=== PATIENT | female | born 1990 | race Caucasian/White ===

== ENCOUNTER 2016-09-12 11:24 | Emergency (ER) | payer OTHER ==
[2016-09-12 13:33] VITALS: BP 125/80
--- NOTE | 2016-09-12 14:17 | UC ---
FLU HPI - HPI Summary HPI Summary: NONPRODUCTIVE COUGH FEVER, BODY ACHES. - History of Current Complaint Chief Complaint: UCRespiratory Stated Complaint: FEVER,COUGH Time Seen by Provider: 09/12/16 13:59 Hx Obtained From: Patient Hx Last Menstrual Period: 08/14/16 Onset/Duration: Gradual Onset, Lasting Days - FOUR Severity Currently: Moderate Severity Initially: Moderate Associated Signs & Symptoms: Positive: Fever, F/C, Myalgia, Cough, Nasal Congestion - Allergy/Home Medications Allergies/Adverse Reactions: Allergies Allergy/AdvReac Type Severity Reaction Status Date / Time No Known Allergies Allergy Verified 09/12/16 13:27 Home Medications: Home Medications Ibuprofen [Advil] 400 mg PO Q6H PRN 09/12/16 [History Confirmed 09/12/16] Norgestimate-Eth Estradiol(NF) [Ortho Tri-Cyclen (NF)] 1 tab PO DAILY 09/12/16 [ History Confirmed 09/12/16] PMH/Surg Hx/FS Hx/Imm Hx Previously Healthy: Yes - Surgical History Surgical History: None - Family History Known Family History: Positive: Hypertension - Social History Occupation: Employed Full-time - [employer] Lives: With Family Alcohol Use: None Substance Use Type: None Smoking Status (MU): Never Smoked Tobacco - Immunization History Most Recent Influenza Vaccination: not this season Review of Systems Constitutional: Fever, Chills Skin: Negative Eyes: Negative ENT: Negative Respiratory: Cough Cardiovascular: Negative Gastrointestinal: Negative Genitourinary: Negative Motor: Negative Neurovascular: Negative Musculoskeletal: Myalgia Neurological: Negative Psychological: Negative All Other Systems Reviewed And Are Negative: Yes Physical Exam Triage Information Reviewed: Yes Appearance: No Pain Distress, Well-Nourished, Ill-Appearing - MILD Vital Signs: Initial Vital Signs Temp 98 F 09/12/16 13:29 Pulse 70 09/12/16 13:29 Resp 18 09/12/16 13:29 BP 125/80 09/12/16 13:29 Pulse Ox 99 09/12/16 13:29 Vital Signs Reviewed: Yes Eye Exam: Normal ENT Exam: Normal ENT: Positive: Normal ENT inspection, Hearing grossly normal, Pharynx normal, TMs normal Dental Exam: Normal Neck exam: Normal Neck: Positive: Supple, Nontender Respiratory Exam: Normal Respiratory: Positive: Chest non-tender, Lungs clear, Normal breath sounds, No respiratory distress Cardiovascular Exam: Normal Cardiovascular: Positive: RRR, No Murmur, Pulses Normal Abdominal Exam: Normal Abdomen Description: Positive: Nontender, No Organomegaly Musculoskeletal Exam: Normal Neurological Exam: Normal Psychological Exam: Normal Psychological: Positive: Normal Response To Family Flu Course/Dx - Differential Dx/Diagnosis Differential Diagnosis/HQI/PQRI: Broncholiolitis, Influenza, Upper Respiratory Infection Provider Diagnoses: INFLUENZA Discharge - Discharge Plan Condition: Stable Disposition: HOME Patient Education Materials: Influenza (ED) Forms: *Work Release Referrals: Mae Paiz [Primary Care Provider] -
== END 2016-09-12 14:28 | disposition home or self-care (01) ==
LOC: UCCORT 11:24
DX: J11.1 Influenza due to unidentified influenza virus with other respiratory manifestations (principal)
CPT/HCPCS: 99211; G0463

== ENCOUNTER 2017-11-23 09:08 | Emergency (ER) | payer OTHER ==
--- NOTE | 2017-11-23 09:54 | UC ---
Abdominal Pain Female HPI - HPI Summary HPI Summary: Patient states for the past 3 days she's had upper GI symptoms including nausea vomiting. Today she woke and has had 4 episodes of watery stool. Denies fevers denies illness exposures denies recent antibiotics denies travel. 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 - History of Current Complaint Chief Complaint: UCAbdominalPain Stated Complaint: stomach ache/vomiting Time Seen by Provider: 11/23/17 09:44 Hx Obtained From: Patient Hx Last Menstrual Period: 08/14/16 ?: No - has an IUD Onset/Duration: Sudden Onset, Lasting Days - 4, Worse Since - This morning Severity Initially: Mild Severity Currently: Mild Location: Diffuse Radiates: No Character: Colicy, Cramping Aggravating Factor(s): Nothing Alleviating Factor(s): Nothing Associated Signs and Symptoms: Positive: Nausea, Vomiting, Diarrhea Allergies/Adverse Reactions: Allergies Allergy/AdvReac Type Severity Reaction Status Date / Time No Known Allergies Allergy Verified 11/23/17 09:59 Home Medications: Home Medications Levonorgestrel (Iud) [Mirena IUD] 1 applic IU ONCE 11/23/17 [History Confirmed 11/23/17] PMH/Surg Hx/FS Hx/Imm Hx Previously Healthy: Yes - Surgical History Surgical History: None - Family History Known Family History: Positive: Hypertension - Social History Occupation: Employed Full-time Lives: With Family Alcohol Use: None Substance Use Type: None Smoking Status (MU): Never Smoked Tobacco - Immunization History Most Recent Influenza Vaccination: not this season Review of Systems Constitutional: Negative Skin: Negative Eyes: Negative ENT: Negative Respiratory: Negative Cardiovascular: Negative Gastrointestinal: Vomiting, Diarrhea, Nausea Genitourinary: Negative Motor: Negative Neurovascular: Negative Musculoskeletal: Negative Neurological: Negative Psychological: Negative Is Patient Immunocompromised?: No All Other Systems Reviewed And Are Negative: Yes Physical Exam Triage Information Reviewed: Yes Appearance: Well-Appearing, No Pain Distress, Well-Nourished Vital Signs Reviewed: Yes Eye Exam: Normal Eyes: Positive: Conjunctiva Clear ENT Exam: Normal ENT: Positive: Normal ENT inspection, Hearing grossly normal. Negative: Trismus , Muffled voice, Hoarse voice Dental Exam: Normal Neck exam: Normal Neck: Positive: Supple, Nontender Respiratory Exam: Normal Respiratory: Positive: Chest non-tender, Lungs clear, Normal breath sounds, No respiratory distress, No accessory muscle use Cardiovascular Exam: Normal Cardiovascular: Positive: RRR, No Murmur, Pulses Normal, Brisk Capillary Refill Abdominal Exam: Normal Abdomen Description: Positive: No Organomegaly, Soft, Other: - diffuse discomfort. Negative: CVA Tenderness (R), CVA Tenderness (L) Bowel Sounds: Positive: Present Musculoskeletal Exam: Normal Musculoskeletal: Positive: Strength Intact, ROM Intact, No Edema Neurological Exam: Normal Neurological: Positive: Alert, Muscle Tone Normal Psychological Exam: Normal Skin Exam: Normal Diagnostics - Laboratory Diagnostic Studies Completed/Ordered: +3 blood, +1 leukoesterace, upreg (-) Re-Evaluation - Re-Evaluation First Eval Change: Unchanged - Patient had no loose stools will at the urgent care patient tolerated bottle water without further vomiting. Abd Pain Female Course/Dx - Course Course Of Treatment: Advance diet slowly clear liquids to brat diet to regular diet. Follow hematuria with pcp. recheck should symptoms worsen or fail to improve. - Differential Dx/Diagnosis Provider Diagnoses: Acute nausea vomiting diarrhea Discharge - Sign-Out/Discharge Documenting (check all that apply): Discharge - Discharge Plan Condition: Stable Disposition: HOME Patient Education Materials: Clear Liquid Diet (ED), Acute Nausea and Vomiting (ED), Acute Diarrhea (ED), Hematuria (ED), Nutrition Tips for Relief of Diarrhea (ED) Forms: *School Release, *Work Release Referrals: Melina Marie NP [Primary Care Provider] - 2 Days - Billing Disposition and Condition Condition: STABLE Disposition: HOME
[2017-11-23 10:04] VITALS: BP 140/90
== END 2017-11-23 10:48 | disposition home or self-care (01) ==
LOC: UCCORT 09:08
DX: R11.2 Nausea with vomiting, unspecified (principal); R19.7 Diarrhea, unspecified; Z32.02 Encounter for pregnancy test, result negative
CPT/HCPCS: 81003; 84702; 87086; 99211; G0463

== ENCOUNTER 2018-09-01 12:29 | Emergency (ER) | payer MEDICAID, OTHER ==
[2018-09-01 12:40] VITALS: BP 141/74
--- NOTE | 2018-09-01 12:58 | UC ---
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 Over past few days c/o exertional SOB. " -she was sick at [place] and those sx resolved. cough started ~ 2 wks ago and now worsening. + asthma. -no fevers, chills, ST, ear pain, sinus pain -had nebulizer as a child but outgrew any possible asthma. doesnt have albuterol to use. 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 - History of Current Complaint Chief Complaint: UCRespiratory Stated Complaint: SOB,COUGH,CHEST TIGHTNESS Time Seen by Provider: 09/01/18 12:57 Hx Last Menstrual Period: unknown, mirena Pain Intensity: 0 - Allergies/Home Medications Allergies/Adverse Reactions: Allergies Allergy/AdvReac Type Severity Reaction Status Date / Time No Known Allergies Allergy Verified 09/01/18 12:37 Home Medications: Home Medications Dextromethorphan Hb/Doxylamine [Night Time Cough Liquid] 10 ml PO ONCE 09/01/18 [History Confirmed 09/01/18] PMH/Surg Hx/FS Hx/Imm Hx Previously Healthy: Yes - Surgical History Surgical History: None - Family History Known Family History: Positive: Hypertension - Social History Alcohol Use: None Substance Use Type: None Smoking Status (MU): Never Smoked Tobacco - Immunization History Most Recent Influenza Vaccination: not this season Review of Systems All Other Systems Reviewed And Are Negative: Yes Constitutional: Positive: Negative Skin: Positive: Negative Eyes: Positive: Negative ENT: Positive: Negative Respiratory: Positive: Cough Cardiovascular: Positive: Negative Gastrointestinal: Positive: Negative Genitourinary: Positive: Negative Motor: Positive: Negative Neurovascular: Positive: Negative Musculoskeletal: Positive: Negative Neurological: Positive: Negative Psychological: Positive: Negative Is Patient Immunocompromised?: No Physical Exam Triage Information Reviewed: Yes Appearance: Well-Appearing, No Pain Distress, Well-Nourished Vital Signs: Initial Vital Signs Temp 96.7 F 09/01/18 12:37 Pulse 88 09/01/18 12:37 Resp 18 09/01/18 12:37 BP 141/74 09/01/18 12:37 Pulse Ox 96 09/01/18 12:37 Eye Exam: Normal ENT Exam: Normal ENT: Positive: Pharyngeal erythema - mild. + PND, TMs normal. Negative: TM bulging, TM dull, TM red, Sinus tenderness Neck exam: Normal Neck: Positive: Supple, Nontender, No Lymphadenopathy Respiratory: Positive: No respiratory distress, No accessory muscle use, Decreased breath sounds - mild, Wheezing - mild BL exp Cardiovascular Exam: Normal Cardiovascular: Positive: RRR, No Murmur Abdominal Exam: Normal Musculoskeletal Exam: Normal Neurological Exam: Normal Psychological Exam: Normal Skin Exam: Normal UC Diagnostic Evaluation - Laboratory O2 Sat by Pulse Oximetry: 96 Respiratory Course/Dx - Course Course Of Treatment: no e/o bactreial infection. no fever. RAD. -f/u sooner with fevers, resp distress. - Differential Dx/Diagnosis Differential Diagnosis/HQI/PQRI: Asthma, Bronchitis, Sinusitis Provider Diagnosis: Bronchitis Discharge - Sign-Out/Discharge Documenting (check all that apply): Patient Departure All imaging exams completed and their final reports reviewed: No Studies - Discharge Plan Condition: Stable Disposition: HOME Prescriptions: Albuterol HFA INHALER* [Ventolin HFA Inhaler*] 2 puff INH Q4H PRN 15 Days #1 mdi PRN Reason: Cough methylPREDNISolone [Medrol Dosepak 4 MG*] 4 mg PO DAILY #1 pedro Patient Education Materials: Acute Bronchitis (ED) Forms: *Work Release Referrals: Melina Marie NP [Primary Care Provider] - 5 Days - Billing Disposition and Condition Condition: STABLE Disposition: Home
== END 2018-09-01 13:32 | disposition home or self-care (01) ==
LOC: UCCORT 12:29
DX: J40 Bronchitis, not specified as acute or chronic (principal)
CPT/HCPCS: 99212; G0463